=== PATIENT | male | born 1950 | race Caucasian/White ===

== ENCOUNTER 2019-05-07 12:35 | Inpatient (IN) ==
[2019-05-07] MEDS ORDERED: ALBUTEROL 2.5 MG/3 ML NEB RESP TX STA (12:58)
[2019-05-07 13:22] LABS: Basophils # 0.1 10*3/uL (0.0-0.2); Basophils % 0.5 % (0.0-0.8); Eosinophils # 0.2 10*3/uL (0.0-0.87); Eosinophils % 0.9 % (0.00-10.9); Hematocrit 37.3 VOL% (42.0-52.0); Immature Granulocytes % 5.5 %; Immature Granulocytes Absolute 1.17 #; Lymphocytes # 1.4 10*3/uL (1.4-4.0); Lymphocytes % 6.4 % (21.2-54.2); Mean Corpuscular HGB Conc 32.2 GM/DL (32-36); Mean Corpuscular Volume 92.6 FL (87-102); Mean Platelet Volume 8.9 FL (9.6-12.0); Monocytes % 8.3 % (1.7-12.7); Neutrophils % 78.4 % (38.7-73.9); Platelet Count 436 T/CUMM (130-400); Red Blood Count 4.03 MC/CUMM (3.8-5.5); Red Cell Distribution Width 13.5 % (9.3-17.3); White Blood Count 21.1 T/CUMM (4-12)
[2019-05-07 13:30] LABS: INR 0.9; PT Patient Result 9.6 SECS; Partial Thromboplastin Time 29.4 SECS (0-40)
[2019-05-07 13:31] LABS: ABG Base Excess 2.7 MMOL/L (-2.5-2.5); ABG HCO3 26.9 MMOL/L (20-26); ABG Oxygen Saturation 96.1 % (95-100); ABG PH 7.445 (7.35-7.45); ABG PO2 91.1 MM HG (80-95); ABG TCO2 28.1 MMOL/L (23-27)
[2019-05-07 13:43] LABS: Anisocytosis 3+; Band Neutrophils 2 % (0-10); Eosinophils 2 % (0-10); Lymphocytes 6 % (20-55); Macrocytosis 3+; Metamyelocytes 1 %; Microcytosis 1+; Platelet Estimate Increased; Reactive Lymphocytes Slight; Segmented Neutrophils 84 % (50-85); Total Cells Counted 100
[2019-05-07 13:44] LABS: Polychromasia Few
[2019-05-07 13:51] LABS: Calcium 9.1 MG/DL (8.5-10.1); Osmolality,Calculated 277.5 MOS/KG (273-304); Total Protein 6.4 G/DL (6.4-8.3)
[2019-05-07] MEDS ORDERED: PIPERACILLIN/TAZOBACTAM 3,375 MG in SODIUM CHLORIDE 0.9% 100 ML IV STA (14:56)
[2019-05-07] MEDS ORDERED: methylPREDNISolone SOD SUC 125 MG/2 ML VIAL IV STA (14:57)
[2019-05-07] MEDS ORDERED: ZALEPLON 5 MG CAPSULE PO PRN (14:59)
[2019-05-07] MEDS ORDERED: ACETAMINOPHEN 325 MG TABLET PO PRN (14:59)
[2019-05-07] MEDS ORDERED: diphenhydrAMINE CAP 25 MG CAPSULE PO PRN (14:59)
[2019-05-07] MEDS ORDERED: ONDANSETRON 4 MG/2 ML VIAL IV PRN (14:59)
[2019-05-07] MEDS ORDERED: guaiFENesin/DM ER 600-30 MG TABLET PO PRN (14:59)
[2019-05-07] MEDS ORDERED: METAXALONE 800 MG TABLET PO PRN (15:08)
[2019-05-07 15:29] LABS: Barbiturates Screen,Urine Negative (Negative); Benzodiazepines Screen,Urine Negative (Negative); Cannabinoid Screen,Urine Negative (Negative); Opiate Screen,Urine Negative (Negative); Phencyclidine Screen,Urine Negative (Negative)
[2019-05-07 15:30] LABS: Apearance,Urine CLEAR (Clear); Bilirubin,Urine Negative (Negative); Blood, Urine Negative (Negative); Glucose,Urine (UA) Negative (Negative); Ketones,Urine 5 mg/dL (Negative); Nitrite,Urine Negative (Negative); Protein,Urine Negative; RBC,Urine <1 /HPF (0-4); Urine Color Yellow (Yellow); Urine Specific Gravity 1.012 (1.001-1.035); Urine Urobilinogen < 2.0 EU/DL (0.2-1.0); WBC,Urine 2 /HPF (0-6)
[2019-05-07] MEDS: SODIUM CHLORIDE 0.9% 1,000 ML IV SCH (19:00)
[2019-05-07] MEDS: AZITHROMYCIN INJ 500 MG in SODIUM CHLORIDE 0.9% 250 ML IV SCH (19:00)
[2019-05-07] MEDS: HEPARIN 5,000 UNIT/1 ML VIAL SUBCUT SCH ×2 (19:00→23:02)
[2019-05-07] MEDS: ALBUTEROL/IPRATROPIUM 3 ML NEB RESP TX SCH (19:46)
[2019-05-07] MEDS: DOCUSATE SODIUM 100 MG CAPSULE PO SCH (20:47)
[2019-05-07] MEDS: TAMSULOSIN 0.4 MG CAPSULE PO SCH (20:47)
[2019-05-07] MEDS: GABAPENTIN 400 MG CAPSULE PO SCH (20:48)
[2019-05-07] MEDS: VANCOMYCIN INJ 1,500 MG in SODIUM CHLORIDE 0.9% 500 ML IV SCH (20:48)
[2019-05-07] MEDS: PIPERACILLIN/TAZOBACTAM 3,375 MG in SODIUM CHLORIDE 0.9% 100 ML IV SCH (23:02)
[2019-05-08] MEDS: ALBUTEROL/IPRATROPIUM 3 ML NEB RESP TX SCH ×4 (01:40→19:20)
[2019-05-08 03:41] LABS: ABG Base Excess 2.2 MMOL/L (-2.5-2.5); ABG HCO3 26.3 MMOL/L (20-26); ABG Oxygen Saturation 95.6 % (95-100); ABG PCO2 40.6 MM HG (35-48); ABG PH 7.426 (7.35-7.45); ABG PO2 75.4 MM HG (80-95); ABG TCO2 23.6 MMOL/L (23-27); Allen Test Positive
[2019-05-08 05:50] LABS: Basophils # 0.1 10*3/uL (0.0-0.2); Basophils % 0.5 % (0.0-0.8); Hematocrit 37.4 VOL% (42.0-52.0); Hemoglobin 12.2 GM/DL (14.0-18.0); Immature Granulocytes % 4.1 %; Immature Granulocytes Absolute 0.99 #; Lymphocytes # 0.9 10*3/uL (1.4-4.0); Lymphocytes % 3.6 % (21.2-54.2); Mean Corpuscular HGB Conc 32.6 GM/DL (32-36); Mean Corpuscular Volume 91.7 FL (87-102); Mean Platelet Volume 9.3 FL (9.6-12.0); Monocytes % 5.6 % (1.7-12.7); Neutrophils % 86.2 % (38.7-73.9); Platelet Count 455 T/CUMM (130-400); Red Blood Count 4.08 MC/CUMM (3.8-5.5); Red Cell Distribution Width 13.6 % (9.3-17.3); White Blood Count 23.9 T/CUMM (4-12)
[2019-05-08 06:19] LABS: Albumin 2.3 G/DL (3.4-5.0); Lymphocytes 1 % (20-55); Segmented Neutrophils 95 % (50-85); Total Cells Counted 100; Total Protein 6.8 G/DL (6.4-8.3)
[2019-05-08 06:20] LABS: Platelet Estimate Normal; Polychromasia Few
[2019-05-08 06:39] LABS: Albumin 2.5 G/DL (3.4-5.0); Bilirubin,Total 0.7 MG/DL (0.2-1.0); Calcium 9.5 MG/DL (8.5-10.1); Osmolality,Calculated 285.3 MOS/KG (273-304); Risk Ratio 4.91; Thyroid Stimulating Hormone 0.338 uIU/ml (0.358-3.74); VLDL CHOLESTEROL 32.6 MG/DL
[2019-05-08] MEDS: HEPARIN 5,000 UNIT/1 ML VIAL SUBCUT SCH ×2 (08:02→16:01)
[2019-05-08] MEDS: PIPERACILLIN/TAZOBACTAM 3,375 MG in SODIUM CHLORIDE 0.9% 100 ML IV SCH ×2 (08:03→16:02)
[2019-05-08 10:27] LABS: Total Protein,Body Fluid 4.5 G/DL
[2019-05-08 10:44] LABS: Lymphocytes,Pleural Fluid 24 %; Monocytes,Pleural Fluid 17 %; Neutrophils,Pleural Fluid 59 %; RBC,Pleural Fluid 193 T/CUMM
[2019-05-08] MEDS: PANTOPRAZOLE 40 MG TABLET PO SCH (12:24)
[2019-05-08] MEDS: TAMSULOSIN 0.4 MG CAPSULE PO SCH ×3 (12:24→21:03)
[2019-05-08] MEDS: DOCUSATE SODIUM 100 MG CAPSULE PO SCH ×2 (12:24→20:58)
[2019-05-08] MEDS: GABAPENTIN 400 MG CAPSULE PO SCH ×3 (12:28→20:58)
[2019-05-08] MEDS: VANCOMYCIN INJ 1,500 MG in SODIUM CHLORIDE 0.9% 500 ML IV SCH ×2 (12:29→20:58)
[2019-05-08] MEDS: oxyCODONE/ACETAMINOPHEN 5-325 MG TABLET PO PRN (13:36)
[2019-05-08] MEDS: AZITHROMYCIN INJ 500 MG in SODIUM CHLORIDE 0.9% 250 ML IV SCH (18:05)
[2019-05-08] MEDS: SODIUM CHLORIDE 0.9% 1,000 ML IV SCH (18:05)
[2019-05-08] MEDS: ATORVASTATIN 10 MG TABLET PO SCH (20:58)
[2019-05-09] MEDS: HEPARIN 5,000 UNIT/1 ML VIAL SUBCUT SCH ×3 (00:28→14:51)
[2019-05-09] MEDS: PIPERACILLIN/TAZOBACTAM 3,375 MG in SODIUM CHLORIDE 0.9% 100 ML IV SCH ×3 (00:30→15:08)
[2019-05-09] MEDS: ALBUTEROL/IPRATROPIUM 3 ML NEB RESP TX SCH ×5 (00:52→21:17)
[2019-05-09 07:27] LABS: Basophils # 0.2 10*3/uL (0.0-0.2); Basophils % 0.8 % (0.0-0.8); Eosinophils # 0.1 10*3/uL (0.0-0.87); Eosinophils % 0.5 % (0.00-10.9); Hematocrit 35.2 VOL% (42.0-52.0); Immature Granulocytes % 8.5 %; Immature Granulocytes Absolute 1.96 #; Lymphocytes # 2.4 10*3/uL (1.4-4.0); Lymphocytes % 10.2 % (21.2-54.2); Mean Corpuscular HGB Conc 31.3 GM/DL (32-36); Mean Corpuscular Volume 94.4 FL (87-102); Mean Platelet Volume 8.9 FL (9.6-12.0); Monocytes % 5.5 % (1.7-12.7); Neutrophils % 74.5 % (38.7-73.9); Platelet Count 476 T/CUMM (130-400); Red Blood Count 3.73 MC/CUMM (3.8-5.5); Red Cell Distribution Width 14.2 % (9.3-17.3)
[2019-05-09 07:48] LABS: Eosinophils 1 % (0-10); Lymphocytes 12 % (20-55); Metamyelocytes 3 %; Segmented Neutrophils 78 % (50-85); Total Cells Counted 100
[2019-05-09 07:49] LABS: Microcytosis 1+; Platelet Estimate Increased
[2019-05-09 08:03] LABS: Albumin 2.3 G/DL (3.4-5.0); Bilirubin,Total 0.4 MG/DL (0.2-1.0); Calcium 8.8 MG/DL (8.5-10.1); Osmolality,Calculated 292.4 MOS/KG (273-304); Total Protein 6.4 G/DL (6.4-8.3)
[2019-05-09] MEDS: PANTOPRAZOLE 40 MG TABLET PO SCH (08:35)
[2019-05-09] MEDS: TAMSULOSIN 0.4 MG CAPSULE PO SCH ×2 (08:35→21:29)
[2019-05-09] MEDS: GABAPENTIN 400 MG CAPSULE PO SCH ×3 (08:36→21:29)
[2019-05-09] MEDS: DOCUSATE SODIUM 100 MG CAPSULE PO SCH ×2 (08:37→21:32)
[2019-05-09] MEDS: oxyCODONE/ACETAMINOPHEN 5-325 MG TABLET PO PRN ×2 (08:37→17:19)
[2019-05-09] MEDS: POTASSIUM CHLORIDE 20 MEQ TABLET PO PRN ×4 (10:26→18:54)
[2019-05-09] MEDS: VANCOMYCIN INJ 1,500 MG in SODIUM CHLORIDE 0.9% 500 ML IV SCH (11:48)
[2019-05-09] MEDS: SODIUM CHLORIDE 0.9% 1,000 ML IV SCH (14:35)
[2019-05-09] MEDS: DEXTROSE 5% NACL 0.45% 1,000 ML IV SCH (15:08)
[2019-05-09] MEDS: AZITHROMYCIN INJ 500 MG in SODIUM CHLORIDE 0.9% 250 ML IV SCH (17:21)
[2019-05-09] MEDS: ATORVASTATIN 10 MG TABLET PO SCH (21:29)
[2019-05-10] MEDS: VANCOMYCIN INJ 1,500 MG in SODIUM CHLORIDE 0.9% 500 ML IV SCH ×3 (00:20→23:39)
[2019-05-10] MEDS: HEPARIN 5,000 UNIT/1 ML VIAL SUBCUT SCH ×4 (00:21→23:39)
[2019-05-10] MEDS: PIPERACILLIN/TAZOBACTAM 3,375 MG in SODIUM CHLORIDE 0.9% 100 ML IV SCH ×4 (00:21→23:39)
[2019-05-10] MEDS: ALBUTEROL/IPRATROPIUM 3 ML NEB RESP TX SCH ×4 (00:30→19:06)
[2019-05-10 01:27] LABS: Basophils # 0.2 10*3/uL (0.0-0.2); Basophils % 0.8 % (0.0-0.8); Eosinophils # 0.3 10*3/uL (0.0-0.87); Eosinophils % 1.4 % (0.00-10.9); Hematocrit 32.1 VOL% (42.0-52.0); Hemoglobin 10.5 GM/DL (14.0-18.0); Immature Granulocytes % 10.8 %; Lymphocytes # 3.6 10*3/uL (1.4-4.0); Lymphocytes % 16.9 % (21.2-54.2); Mean Corpuscular HGB Conc 32.7 GM/DL (32-36); Mean Corpuscular Volume 92.8 FL (87-102); Mean Platelet Volume 8.9 FL (9.6-12.0); Monocytes % 5.2 % (1.7-12.7); Neutrophils % 64.9 % (38.7-73.9); Platelet Count 467 T/CUMM (130-400); Red Blood Count 3.46 MC/CUMM (3.8-5.5); White Blood Count 21.3 T/CUMM (4-12)
[2019-05-10 01:52] LABS: Albumin 2.3 G/DL (3.4-5.0); Bilirubin,Total 0.4 MG/DL (0.2-1.0); Calcium 8.4 MG/DL (8.5-10.1); Osmolality,Calculated 286.7 MOS/KG (273-304); Total Protein 6.2 G/DL (6.4-8.3)
[2019-05-10 02:26] LABS: Band Neutrophils 5 % (0-10); Lymphocytes 19 % (20-55); Segmented Neutrophils 70 % (50-85)
[2019-05-10 02:27] LABS: Platelet Estimate Normal; Total Cells Counted 100
[2019-05-10] MEDS: oxyCODONE/ACETAMINOPHEN 5-325 MG TABLET PO PRN ×3 (06:21→16:16)
[2019-05-10] MEDS: DEXTROSE 5% NACL 0.45% 1,000 ML IV SCH ×2 (06:24→21:15)
[2019-05-10] MEDS: PANTOPRAZOLE 40 MG TABLET PO SCH (08:53)
[2019-05-10] MEDS: GABAPENTIN 400 MG CAPSULE PO SCH ×3 (08:53→21:17)
[2019-05-10] MEDS: DOCUSATE SODIUM 100 MG CAPSULE PO SCH ×2 (08:54→21:18)
[2019-05-10] MEDS: TAMSULOSIN 0.4 MG CAPSULE PO SCH ×2 (08:54→21:17)
[2019-05-10] MEDS ORDERED: MORPHINE 4 MG/1 ML VIAL IV PRN (09:51)
[2019-05-10] MEDS: AZITHROMYCIN INJ 500 MG in SODIUM CHLORIDE 0.9% 250 ML IV SCH (17:48)
[2019-05-10] MEDS: ATORVASTATIN 10 MG TABLET PO SCH (21:17)
[2019-05-10] MEDS: TEMAZEPAM 15 MG CAPSULE PO PRN (21:17)
[2019-05-11] MEDS: ALBUTEROL/IPRATROPIUM 3 ML NEB RESP TX SCH ×4 (02:21→19:25)
[2019-05-11 04:58] LABS: Basophils # 0.2 10*3/uL (0.0-0.2); Basophils % 0.8 % (0.0-0.8); Eosinophils # 0.4 10*3/uL (0.0-0.87); Eosinophils % 1.7 % (0.00-10.9); Hematocrit 35.4 VOL% (42.0-52.0); Hemoglobin 11.3 GM/DL (14.0-18.0); Immature Granulocytes % 7.4 %; Immature Granulocytes Absolute 1.53 #; Lymphocytes # 2.3 10*3/uL (1.4-4.0); Lymphocytes % 11.3 % (21.2-54.2); Mean Corpuscular HGB Conc 31.9 GM/DL (32-36); Mean Corpuscular Volume 92.4 FL (87-102); Mean Platelet Volume 8.8 FL (9.6-12.0); Monocytes % 4.5 % (1.7-12.7); Neutrophils % 74.3 % (38.7-73.9); Platelet Count 464 T/CUMM (130-400); Red Blood Count 3.83 MC/CUMM (3.8-5.5); Red Cell Distribution Width 13.8 % (9.3-17.3); White Blood Count 20.7 T/CUMM (4-12)
[2019-05-11 05:22] LABS: Albumin 2.4 G/DL (3.4-5.0); Bilirubin,Total 0.4 MG/DL (0.2-1.0); Calcium 8.7 MG/DL (8.5-10.1); Osmolality,Calculated 283.8 MOS/KG (273-304); Total Protein 6.3 G/DL (6.4-8.3)
[2019-05-11 05:37] LABS: Anisocytosis 1+; Eosinophils 2 % (0-10); Lymphocytes 7 % (20-55); Platelet Estimate Increased; Segmented Neutrophils 91 % (50-85); Total Cells Counted 100
[2019-05-11] MEDS: DEXTROSE 5% NACL 0.45% 1,000 ML IV SCH ×2 (05:58→06:03)
[2019-05-11] MEDS: oxyCODONE/ACETAMINOPHEN 5-325 MG TABLET PO PRN (06:01)
[2019-05-11] MEDS: PIPERACILLIN/TAZOBACTAM 3,375 MG in SODIUM CHLORIDE 0.9% 100 ML IV SCH ×3 (07:29→23:38)
[2019-05-11] MEDS: HEPARIN 5,000 UNIT/1 ML VIAL SUBCUT SCH ×3 (07:30→23:38)
[2019-05-11] MEDS: DOCUSATE SODIUM 100 MG CAPSULE PO SCH ×2 (08:50→20:46)
[2019-05-11] MEDS: GABAPENTIN 400 MG CAPSULE PO SCH ×3 (08:50→20:33)
[2019-05-11] MEDS: TAMSULOSIN 0.4 MG CAPSULE PO SCH ×2 (08:50→20:32)
[2019-05-11] MEDS: PANTOPRAZOLE 40 MG TABLET PO SCH (08:50)
[2019-05-11] MEDS: VANCOMYCIN INJ 1,500 MG in SODIUM CHLORIDE 0.9% 500 ML IV SCH (11:07)
[2019-05-11] MEDS: AZITHROMYCIN INJ 500 MG in SODIUM CHLORIDE 0.9% 250 ML IV SCH (20:31)
[2019-05-11] MEDS: ATORVASTATIN 10 MG TABLET PO SCH (20:33)
[2019-05-11] MEDS: TEMAZEPAM 15 MG CAPSULE PO PRN (20:33)
[2019-05-12] MEDS: ALBUTEROL/IPRATROPIUM 3 ML NEB RESP TX SCH ×5 (01:19→23:58)
[2019-05-12] MEDS: DEXTROSE 5% NACL 0.45% 1,000 ML IV SCH ×2 (04:17→04:18)
[2019-05-12] MEDS: oxyCODONE/ACETAMINOPHEN 5-325 MG TABLET PO PRN ×3 (04:18→20:22)
[2019-05-12] MEDS: VANCOMYCIN INJ 1,500 MG in SODIUM CHLORIDE 0.9% 500 ML IV SCH ×2 (04:18→17:03)
[2019-05-12 05:52] LABS: Basophils # 0.2 10*3/uL (0.0-0.2); Basophils % 0.8 % (0.0-0.8); Eosinophils # 0.4 10*3/uL (0.0-0.87); Eosinophils % 1.8 % (0.00-10.9); Hematocrit 35.4 VOL% (42.0-52.0); Hemoglobin 11.4 GM/DL (14.0-18.0); Immature Granulocytes % 6.5 %; Immature Granulocytes Absolute 1.27 #; Lymphocytes # 2.1 10*3/uL (1.4-4.0); Lymphocytes % 10.9 % (21.2-54.2); Mean Corpuscular HGB Conc 32.2 GM/DL (32-36); Mean Corpuscular Volume 92.4 FL (87-102); Mean Platelet Volume 8.9 FL (9.6-12.0); Platelet Count 449 T/CUMM (130-400); Red Blood Count 3.83 MC/CUMM (3.8-5.5); Red Cell Distribution Width 13.8 % (9.3-17.3); White Blood Count 19.5 T/CUMM (4-12)
[2019-05-12 05:58] LABS: Osmolality,Calculated 280.1 MOS/KG (273-304)
[2019-05-12] MEDS: PIPERACILLIN/TAZOBACTAM 3,375 MG in SODIUM CHLORIDE 0.9% 100 ML IV SCH ×2 (08:23→14:56)
[2019-05-12] MEDS: DOCUSATE SODIUM 100 MG CAPSULE PO SCH ×2 (08:26→20:22)
[2019-05-12] MEDS: PANTOPRAZOLE 40 MG TABLET PO SCH (08:26)
[2019-05-12] MEDS: GABAPENTIN 400 MG CAPSULE PO SCH ×3 (08:26→20:22)
[2019-05-12] MEDS: TAMSULOSIN 0.4 MG CAPSULE PO SCH ×2 (08:26→20:22)
[2019-05-12] MEDS: HEPARIN 5,000 UNIT/1 ML VIAL SUBCUT SCH ×2 (08:27→15:00)
[2019-05-12] MEDS: AZITHROMYCIN INJ 500 MG in SODIUM CHLORIDE 0.9% 250 ML IV SCH (18:06)
[2019-05-12] MEDS: ATORVASTATIN 10 MG TABLET PO SCH (20:22)
[2019-05-12] MEDS: TEMAZEPAM 15 MG CAPSULE PO PRN (20:22)
[2019-05-12] MEDS: MELOXICAM 7.5 MG TABLET PO PRN (20:54)
[2019-05-13] MEDS: PIPERACILLIN/TAZOBACTAM 3,375 MG in SODIUM CHLORIDE 0.9% 100 ML IV SCH ×3 (00:41→17:08)
[2019-05-13] MEDS: HEPARIN 5,000 UNIT/1 ML VIAL SUBCUT SCH ×4 (00:42→23:37)
[2019-05-13] MEDS: oxyCODONE/ACETAMINOPHEN 5-325 MG TABLET PO PRN ×2 (04:52→13:59)
[2019-05-13 05:43] LABS: Basophils # 0.1 10*3/uL (0.0-0.2); Basophils % 0.5 % (0.0-0.8); Eosinophils # 0.3 10*3/uL (0.0-0.87); Eosinophils % 1.7 % (0.00-10.9); Hematocrit 39.4 VOL% (42.0-52.0); Hemoglobin 12.2 GM/DL (14.0-18.0); Immature Granulocytes % 4.1 %; Immature Granulocytes Absolute 0.75 #; Lymphocytes # 2.5 10*3/uL (1.4-4.0); Lymphocytes % 13.4 % (21.2-54.2); Mean Corpuscular Volume 94.5 FL (87-102); Mean Platelet Volume 8.9 FL (9.6-12.0); Monocytes % 5.8 % (1.7-12.7); Neutrophils % 74.5 % (38.7-73.9); Platelet Count 478 T/CUMM (130-400); Red Blood Count 4.17 MC/CUMM (3.8-5.5); Red Cell Distribution Width 13.9 % (9.3-17.3); White Blood Count 18.3 T/CUMM (4-12)
[2019-05-13 05:56] LABS: Calcium 9.1 MG/DL (8.5-10.1); Osmolality,Calculated 278.3 MOS/KG (273-304)
[2019-05-13 06:05] LABS: Eosinophils 4 % (0-10); Lymphocytes 11 % (20-55); Segmented Neutrophils 80 % (50-85); Total Cells Counted 100
[2019-05-13 06:06] LABS: Hypochromasia 1+; Platelet Estimate Increased
[2019-05-13 06:07] LABS: Atypical Lymphocytes Few
[2019-05-13] MEDS: VANCOMYCIN INJ 1,500 MG in SODIUM CHLORIDE 0.9% 500 ML IV SCH ×2 (06:50→21:26)
[2019-05-13] MEDS: ALBUTEROL/IPRATROPIUM 3 ML NEB RESP TX SCH ×3 (06:59→19:20)
[2019-05-13] MEDS: PANTOPRAZOLE 40 MG TABLET PO SCH (09:05)
[2019-05-13] MEDS: GABAPENTIN 400 MG CAPSULE PO SCH ×3 (09:05→21:27)
[2019-05-13] MEDS: DOCUSATE SODIUM 100 MG CAPSULE PO SCH ×2 (09:05→21:28)
[2019-05-13] MEDS: TAMSULOSIN 0.4 MG CAPSULE PO SCH ×2 (09:05→21:28)
[2019-05-13] MEDS: MELOXICAM 7.5 MG TABLET PO PRN (21:27)
[2019-05-13] MEDS: ATORVASTATIN 10 MG TABLET PO SCH (21:28)
[2019-05-13] MEDS: TEMAZEPAM 15 MG CAPSULE PO PRN (21:29)
[2019-05-14] MEDS: ALBUTEROL/IPRATROPIUM 3 ML NEB RESP TX SCH ×2 (00:53→07:10)
[2019-05-14] MEDS: oxyCODONE/ACETAMINOPHEN 5-325 MG TABLET PO PRN (01:07)
[2019-05-14] MEDS: PIPERACILLIN/TAZOBACTAM 3,375 MG in SODIUM CHLORIDE 0.9% 100 ML IV SCH ×2 (01:11→09:26)
[2019-05-14 06:15] LABS: Basophils # 0.1 10*3/uL (0.0-0.2); Basophils % 0.4 % (0.0-0.8); Eosinophils # 0.3 10*3/uL (0.0-0.87); Eosinophils % 1.9 % (0.00-10.9); Hematocrit 36.8 VOL% (42.0-52.0); Hemoglobin 11.4 GM/DL (14.0-18.0); Immature Granulocytes % 3.3 %; Immature Granulocytes Absolute 0.44 #; Lymphocytes % 14.4 % (21.2-54.2); Mean Corpuscular Volume 93.9 FL (87-102); Platelet Count 453 T/CUMM (130-400); Red Blood Count 3.92 MC/CUMM (3.8-5.5); Red Cell Distribution Width 13.7 % (9.3-17.3); White Blood Count 13.5 T/CUMM (4-12)
[2019-05-14 06:37] LABS: Calcium 9.3 MG/DL (8.5-10.1)
[2019-05-14] MEDS: VANCOMYCIN INJ 1,500 MG in SODIUM CHLORIDE 0.9% 500 ML IV SCH (06:37)
[2019-05-14 08:05] VITALS: BP 116/74
[2019-05-14] MEDS: TAMSULOSIN 0.4 MG CAPSULE PO SCH (09:24)
[2019-05-14] MEDS: PANTOPRAZOLE 40 MG TABLET PO SCH (09:24)
[2019-05-14] MEDS: GABAPENTIN 400 MG CAPSULE PO SCH (09:24)
[2019-05-14] MEDS: DOCUSATE SODIUM 100 MG CAPSULE PO SCH (09:25)
[2019-05-14] MEDS: HEPARIN 5,000 UNIT/1 ML VIAL SUBCUT SCH (09:25)
== END 2019-05-14 10:55 | disposition home or self-care (01) | DRG 194 ==
LOC: N.ED 12:35 → N.EDINP 14:59 → SUPCPDRO 15:00 → SUATTDRO 15:00 → N.2E 16:32
PROVIDERS: ADMIT Internal Medicine; ATTEND Internal Medicine Geriatric Medicine
PROC: IRTHORA (2019-05-08 09:15)